=== PATIENT | male | born 1975 | race Hispanic/Latino ===

== ENCOUNTER 2020-09-18 04:51 | Emergency (ER) | payer OTHER ==
[~2020-09-18] VITALS: Ht 170.2 cm; Wt 90.7 kg
[2020-09-18] MEDS ORDERED: AZITHROMYCIN 500MG/NS 250 ML 250 ML IV ONE (05:15)
[2020-09-18] MEDS ORDERED: ASPIRIN 81 MG CHEW TAB PO ONE (05:15)
[2020-09-18] MEDS ORDERED: CEFTRIAXONE SOD 1 GM/NS 50 ML 50 ML IV ONE (05:15)
[2020-09-18] MEDS ORDERED: DEXAMETHASONE SOD PHOS 10 MG/1 ML VIAL IV ONE (05:15)
[2020-09-18 05:16] LABS: BASOPHILS # (AUTO) 0.1 (0.0-0.1); BASOPHILS % 0.4 % (0.0-1.0); EOSINOPHILS % 0.3 % (0.0-6.0); HEMATOCRIT 48.9 % (38.2-49.6); HEMOGLOBIN 16.1 g/dL (14.0-18.0); LYMPHOCYTES # (AUTO) 1.6 (1.0-3.2); LYMPHOCYTES % 9.9 % (18.0-39.1); MEAN CORPUSCULAR HEMOGLOBIN 29.2 pg (28-32); MEAN CORPUSCULAR HGB CONC 32.9 g/dL (31-35); MEAN CORPUSCULAR VOLUME 88.6 fL (81-99); MONOCYTES # (AUTO) 0.3 (0.2-0.8); MONOCYTES % 1.6 % (4.4-11.3); NEUTROPHILS # (AUTO) 13.3 (2.1-6.9); NEUTROPHILS % 84.5 % (38.7-80.0); PLATELET COUNT 188 x10e3/uL (140-360); RED BLOOD COUNT 5.52 x10e6/uL (4.3-5.7); RED CELL DISTRIBUTION WIDTH 13.5 % (11.7-14.4)
[2020-09-18] MEDS ORDERED: ACETAMINOPHEN 325 MG TAB PO ONE (05:45)
[2020-09-18 05:47] LABS: INR 0.91; PROTHROMBIN TIME 12.7 seconds (11.9-14.5)
[2020-09-18 05:48] LABS: PARTIAL THROMBOPLASTIN TIME 23.8 seconds (23.8-35.5)
[2020-09-18 05:52] LABS: CREATINE KINASE 850 IU/L (30-200)
[2020-09-18 05:54] LABS: ALANINE AMINOTRANSFERASE 60 IU/L (0-55); ALBUMIN 2.7 g/dL (3.5-5.0); ALBUMIN/GLOBULIN RATIO 0.7 (0.8-2.0); ALKALINE PHOSPHATASE 58 IU/L (40-150); ANION GAP 14.2 mmol/L (8-16); BLOOD UREA NITROGEN 10 mg/dL (7-26); BUN/CREATININE RATIO 15 (6-25); CALCIUM 8.3 mg/dL (8.4-10.2); CARBON DIOXIDE 26 mmol/L (22-29); CHLORIDE 99 mmol/L (98-107); CREATININE, SERUM 0.67 mg/dL (0.72-1.25); EST GLOMERULAR FILTRATION RATE > 60 ML/MIN (60-); GLUCOSE 141 mg/dL (74-118); POTASSIUM 4.2 mmol/L (3.5-5.1); SODIUM 135 mmol/L (136-145)
[2020-09-18 08:10] VITALS: BP 119/75
== END 2020-09-18 09:50 | disposition other institution (70) ==
LOC: ER 05:11
DX: U07.1 COVID-19 (principal); J18.9 Pneumonia, unspecified organism; R50.9 Fever, unspecified; R05 Cough; J96.91 Respiratory failure, unspecified with hypoxia
CPT/HCPCS: 36415; 71045; 80053; 82550; 82553; 84484; 85025; 85610; 85730; 87040; 99284; J0456; J0696; J1100; U0002

== ENCOUNTER 2020-10-24 12:56 | Emergency (ER) | payer OTHER ==
[~2020-10-24] VITALS: Ht 170.2 cm; Wt 90.7 kg
[2020-10-24 13:51] VITALS: BP 135/87
== END 2020-10-24 13:53 | disposition home or self-care (01) ==
LOC: ER 13:35
DX: R20.0 Anesthesia of skin (principal); T38.0X5A Adverse effect of glucocorticoids and synthetic analogues, initial encounter
CPT/HCPCS: 99281